=== PATIENT | female | born 1960 | race Caucasian/White ===

== ENCOUNTER → 2016-11-04 | Day surgery (SDC) | payer MEDICARE ==
[~2016-11-04] VITALS: Ht 157.5 cm; Wt 56.4 kg
[~2016-11-04] MED LIST: ALBU4TAB4 PO; BUPIVACAINE HCL PF 0.5% 30 ML VIAL NERV BLOCK ONE; BUPIVACAINE HCL PF 0.5% 30 ML VIAL ONE; CIPR500T2 PO; CIPROFLOXACIN 400 MG PREMIX 200 ML ONE; DIAZ10 PO; FAMOTIDINE 20 MG/2 ML VIAL ONE; FLUT1SPR5 EACH NARE; HYDR-3288 PO; LACTATED RINGER'S 1000 ML INJ 1,000 ML ONE; LIDOCAINE HCL 2% 50 ML VIAL ONE; MIDAZOLAM HCL 5 MG/ML VIAL (1 ML) ONE; NEOMYCIN/POLYMYXIN 1 ML G.U. IRRIGANT TOPICAL ONE; OXYC30TA PO; PROPOFOL 200 MG/20 ML AMP IV ONE; SOMA350T PO; TRIA1CAP6 PO; diphenhydrAMINE HCL 50 MG/ML VIAL ONE
[2016-11-04 08:59] VITALS: BP 109/72; PULSE 69; RESP 20; TEMP 98.2; O2SAT 98
[2016-11-04 09:09] LABS: HEMATOCRIT 40.1 % (35.0-46.0); MEAN CELL VOLUME 100.3 FL (80.0-100.0); MEAN CORPUSCULAR HEMOGLOBIN 32.7 PG (27.0-34.0); MEAN CORPUSCULAR HGB CONC 32.6 % (32.0-36.0); PLATELET COUNT 465 TH/MM3 (150-450); RED CELL DISTRIBUTION WIDTH 13.1 % (11.6-17.2); REVIEW FLAG FINAL; WHITE BLOOD COUNT 9.1 TH/MM3 (4.0-11.0)
[2016-11-04 09:52] VITALS: PULSE 70
[2016-11-04 12:43] VITALS: PULSE 67; TEMP 98
[2016-11-04 14:25] VITALS: BP 97/57; PULSE 64; RESP 14; O2SAT 95
--- NOTE | 2016-11-05 07:52 | MP ---
cc: HARI LORENZO III, M.D. DATE OF SURGERY 11/04/2016 PREOPERATIVE DIAGNOSIS 1. Right first CMC arthritis and pain. 2. Right ring finger trigger finger. PROCEDURE 1. Right trapeziectomy and first CMC suspension arthroplasty. 2. Right fourth A1 jose release. 3. Use of image intensifier. SURGEON Hari Lorenzo III, MD PROCEDURE The patient was brought to the operating room, placed supine on the operating table. After the correct site and side of surgery were verified by members of each team in the room multiple times including the patient and myself and after adequate preop markings were verified by members of each team in the room and after adequate consent was verified and after the right upper extremity block was achieved, the right upper extremity was prepped and draped in the traditional sterile surgical fashion using Hibiclens. IV antibiotics were administered in the usual fashion. The limb was exsanguinated with a gentle Noe wrap. A highly placed well-padded axillary tourniquet was inflated to 200 mmHg for a total of 93 minutes. A 1 cm incision was made transversely in the distal palmar crease over the fourth ray. Blunt dissection was performed. Bipolar electrocautery was used as needed. The flexor tendon identified. The fourth A1 jose was then divided in its entirety. It was found to be very thickened. There were no crossing bands proximally and the flexor tendons were examined and found to be noncompromised in continuity. There was a mildly hypertrophic tenosynovium. There were no other anatomic abnormalities identified. Thorough irrigation was performed with saline and the skin edges were reapproximated using running 4-0 nylon suture. Attention was then paid to the first CMC joint. A small incision was made longitudinally overlying the first CMC joint and carried down through skin and subcutaneous tissue. Bipolar electrocautery was used as needed. Blunt dissection was performed. Dorsal veins were protected. The extensor tendons were already favoring a volar position, therefore the first and third dorsal compartments were easily retracted in opposite directions. The radial artery was identified and protected. It was full and did not appear to clot. Using the mini C-arm, the trapezium was verified. A trap door/H type of incision was made overlying the first CMC joint. The joint was entered. The trapezium was then dissected free from the surrounding soft tissue in its entirety and passed off the field. The trapezium was then dissected free from all surrounding tissue and passed off the field in its entirety and this was verified with the C-arm. Thorough irrigation was performed. Three small 1 cm incisions were made in an ascending fashion over the flexor carpi radialis tendon, the ulnar half of which was harvested and brought out distally. The radial half was left intact. It was brought into the wound in the wrist where the trapezium used to be. A drill hole was then placed in a dorsal volar fashion through the base of the metacarpal and the limb of the tendon advanced through there and back around itself. 2-0 Ethibond was used in [id number] fashion multiple different times to secure the thumb with the metacarpal in an extended position and this held nicely and securely and a spacer was then created out of the tendon in the usual fashion. Thorough irrigation was performed. X-ray was obtained showing the suspension. The articulation to the trapezoid and the scaphoid was also debrided. Thorough irrigation was performed again. The capsule was then repaired using interrupted and running 2-0 Ethibond sutures. Thorough irrigation was performed again. The first and third dorsal compartments were then reapproximated using 3-0 Vicryl sutures and then a thorough irrigation was performed again. The volar forearm wounds were then repaired using running 4-0 nylon sutures. The hand and arm were thoroughly cleansed dried. Bulky dressings were applied around the forearm and the distal palm. The axillary tourniquet was then released. The wound over the wrist was then observed and there was no active bleeding. The wound was then closed in totality with a running 4-0 nylon suture. The hand and arm were thoroughly cleansed and dried. Adaptic dressing was applied over all wounds as stated and a bulky well-padded, well molded short-arm thumb spica splint was made. Of note, when the axillary tourniquet was released, the hand and all the fingers became immediately soft, pink, warm and had brisk capillary refill less than two seconds. The patient was awakened from anesthesia and transported to the Post Anesthesia Care Unit awake and in stable condition at the end of the case. The sponge, needle, and instrument counts were correct at the case as reported by the nurses in the room. MD SUZIE Gore III /1:14 PM /7:26 AM
--- NOTE | 2016-11-05 12:09 | EKG ---
Date Performed: 11/04/2016 Time Performed: 09:43:12 PTAGE: 56 years EKG: Sinus rhythm . Right bundle branch block Abnormal ECG NO PREVIOUS TRACING DOCTOR: John Vasquez Interpretating Date/Time 11/05/2016 12:08:13
== END | disposition home or self-care (01) ==
LOC: PHSDC 08:20
PROVIDERS: ATTEND Orthopaedic Surgery Hand Surgery
DX: M18.11 Unilateral primary osteoarthritis of first carpometacarpal joint, right hand (principal); M65.341 Trigger finger, right ring finger; J45.909 Unspecified asthma, uncomplicated; Z88.1 Allergy status to other antibiotic agents; Z88.0 Allergy status to penicillin; Z91.030 Bee allergy status; Z91.013 Allergy to seafood
CPT/HCPCS: 25447; 26055; 36415; 76000; 85027; 93005; J0744; J1200; J2250; J7120